=== PATIENT | female | born 1965 | race Caucasian/White ===

== ENCOUNTER → 2017-12-06 | Outpatient (CLI) | payer BC ==
--- NOTE | 2017-12-06 16:31 | RAD ---
EXAM DESCRIPTION: Knee,Left Complete CLINICAL HISTORY: 52 years, Female, KNEE PAIN COMPARISON: None TECHNIQUE: Three views of the left knee FINDINGS: No fracture or dislocation. Bones appear normally mineralized with normal trabecular pattern. Narrowed appearance of medial more than lateral compartment on frontal view. Lateral view shows normal position of the patella. Mild posterior patellar spurring. No suprapatellar knee joint effusion. Normal contour of quadriceps and patellar tendons. No abnormal patellar tilt or subluxation on patellar sunrise view. IMPRESSION: Negative for fracture or dislocation. Electronically signed by: Louis Cruz MD 12/06/2017 4:30 PM CDT
== END ==
LOC: RAD 10:20
PROVIDERS: ATTEND Nurse Practitioner Family
DX: M25.562 Pain in left knee (principal)

== ENCOUNTER → 2017-12-18 | Outpatient (CLI) | payer BC ==
--- NOTE | 2017-12-19 12:34 | MRI ---
EXAM DESCRIPTION: Knee,Left: MRI. CLINICAL HISTORY: KNEE PAIN COMPARISON: Left knee radiographs 12/06/2017. TECHNIQUE: Multiplanar, high-field MRI, multiple sequences, without contrast: Left knee. FINDINGS: Abnormal signal in the inferior aspect of the posterior horn of the medial meniscus abutting the inferior inferior articular surface. Also thickening of the body of the medial meniscus and loss of the free edge. Medial compartment effusion with moderate chondromalacia but no subchondral edema. Normal signal in the lateral meniscus. Minimal chondromalacia lateral compartment but no subchondral edema. Minimal lateral effusion. Posterior medial fluid collection in the soft tissues. Medial collateral ligament and elements of the lateral collateral ligament complex are unremarkable. Edema like signal in the mid segment of the anterior cruciate ligament which remains taut in extension. Normal signal in the posterior cruciate. Intra-cruciate space effusion. Suprapatellar effusion with superior patellar plica. No loose bodies. Minimal edema in the infrapatellar fat pad. Normal signal in the quadriceps and patellar tendons. Patellar soft tissue restraints are unremarkable. Grade 4 osteochondral chondrosis in the posterior patellar ridge. Moderate chondromalacia in the lateral femoral trochlear cartilage. IMPRESSION: 1. Small inferior articular surface tear in the posterior horn of the medial meniscus. Free edge tear of the body of the meniscus. Chondromalacia medial compartment. Chondromalacia in the lateral compartment with effusion but no meniscal tear. Posterior medial Noble cysts. 2. Mild grade 1 sprain of the mid segment of the anterior cruciate ligament. Intercruciate space effusion. 3. Grade 4 osteochondrosis posterior patellar ridge. No loose body. Suprapatellar effusion. Chondromalacia in the lateral trochlear cartilage. Electronically signed by: Papo Bills MD 12/19/2017 12:32 PM CDT
== END ==
LOC: MRI 09:30
PROVIDERS: ATTEND Nurse Practitioner Family
DX: S83.242A Other tear of medial meniscus, current injury, left knee, initial encounter (principal); S83.502A Sprain of unspecified cruciate ligament of left knee, initial encounter; M94.262 Chondromalacia, left knee

== ENCOUNTER → 2020-04-29 | Outpatient (CLI) | payer SELFPAY ==
--- NOTE | 2020-04-30 08:56 | MRI ---
EXAM DESCRIPTION: Knee,Right CLINICAL HISTORY: PAIN IN RIGHT KNEE, twisted knee two days ago, felt pop. COMPARISON: None Available. TECHNIQUE: MRI of the right knee is performed with multiplanar multi sequence imaging, without intravenous contrast. FINDINGS: Bone and joint: No focal bony contusion or acute fracture. Mild knee osteoarthrosis with small tricompartmental osteophyte formation. Moderate size knee joint effusion. Cartilage: Grade 2-3 chondrosis involves the medial knee compartment central weightbearing surfaces. Small areas of grade 3 chondrosis involves the lateral knee compartment. Patchy areas of grade 3-4 chondrosis involving the chondrosis the patellofemoral compartment especially at the patella apex and superior trochlear groove. Medial meniscus: Horizontal cleavage tear of the posterior horn extending to the posterior root where there is an additional radial tear component of the posterior horn root junction. No meniscus fragment displacement Lateral meniscus: Mild degenerative fraying along the anterior tibial root. Anterior cruciate ligament: Intact Posterior cruciate ligament: Intact Medial collateral ligament: Intact Lateral collateral ligament: Intact Popliteus tendon: Intact Biceps femoris tendon: Intact Iliotibial band: Intact Medial and lateral retinaculum: Soft tissue injury along the lateral aspect of the patella with low-grade partial tearing of the lateral patellofemoral ligament/retinaculum (series 301 image 18). There is associated moderate edema within the lateral infrapatellar fat pad. Extensor mechanism: The distal quadriceps tendon is intact. The patella tendon is intact. Soft tissues: Posterior knee capsule sprain with fiber irregularity and capsular edema. Small Noble cyst measures 3.7 x 1 cm. IMPRESSION: 1. Medial meniscus tears likely with acute radial tear component along the posterior root. 2. Posterior knee joint capsular sprain. 3. Lateral patellofemoral retinaculum/ligament low-grade partial-thickness tears with moderate lateral infrapatellar fat pad edema/contusion. 4. Mild knee osteoarthrosis with scattered small areas of intermediate grade chondrosis. 5. Moderate size knee joint effusion. Electronically signed by: Eliu Ferreira DO 04/30/2020 8:55 AM CDT
== END ==
LOC: MRI 11:55
PROVIDERS: ATTEND Nurse Practitioner Family
DX: S83.241A Other tear of medial meniscus, current injury, right knee, initial encounter (principal); M23.671 Other spontaneous disruption of capsular ligament of right knee; S86.811A Strain of other muscle(s) and tendon(s) at lower leg level, right leg, initial encounter; M17.11 Unilateral primary osteoarthritis, right knee; M94.261 Chondromalacia, right knee; M25.461 Effusion, right knee

== ENCOUNTER → 2020-10-12 | Outpatient (CLI) | payer BC ==
--- NOTE | 2020-10-13 10:01 | CT ---
EXAM DESCRIPTION: Abdomen/Pelvis w/Contrast CLINICAL HISTORY: MULTIPLE SUBSEGMENTAL PULMONARY EMBOLI W/O ACUTE COR PULMONALE COMPARISON: None. TECHNIQUE: Postcontrast CT images of the abdomen and pelvis are obtained using standard imaging protocol. This exam was performed according to our departmental dose-optimization program, which includes automated exposure control, adjustment of the mA and/or kV according to patient size and/or use of iterative reconstruction technique . FINDINGS: Visualized lung bases are unremarkable. Liver, spleen, pancreas, and adrenal glands are unremarkable. Partly calcified 2.6 cm gallstone in the gallbladder. No gallbladder wall thickening. No biliary tract obstruction. Mild vascular calcifications. 2 mm nonobstructing calcification in a lower pole calyx of the right kidney on image 85 of series 602 is seen. Exophytic fluid attenuation cortical cyst of the upper pole left kidney measures 4.6 x 4.9 cm. No ureteral calcification or obstruction. Urinary bladder poorly distended and unremarkable. The uterus is not identified and presumed surgically absent. Ovaries are not identified. The appendix is small and unremarkable. Stomach is poorly distended but unremarkable. No small bowel obstruction or bowel wall thickening. Mildly increased volume of formed stool in the colon. No significant diverticular disease. No pathologically enlarged abdominal or retroperitoneal lymphadenopathy. Osseous structures show no aggressive bony lesions. Mild to moderate disc degenerative disease and facet arthropathy of the lumbar spine is seen. IMPRESSION: Cholelithiasis. Consider further evaluation with right upper quadrant ultrasound if clinically indicated. Minimal nonobstructing right nephrolithiasis is seen. Mild colon constipation or obstipation is seen. Electronically signed by: Azeem Ayers MD 10/13/2020 10:00 AM [facility]
== END ==
LOC: CT 15:17
PROVIDERS: ATTEND Nurse Practitioner Family
DX: I26.94 Multiple subsegmental thrombotic pulmonary emboli without acute cor pulmonale (principal); K80.20 Calculus of gallbladder without cholecystitis without obstruction; N20.0 Calculus of kidney; K59.00 Constipation, unspecified